=== PATIENT | male | born 1985 | race African-American/Black ===

== ENCOUNTER 2018-10-14 12:16 | Inpatient (IN) ==
[2018-10-14] MEDS ORDERED: KETOROLAC TROMETHAMINE 15 MG/ML VIAL IV STA (12:44)
[2018-10-14] MEDS ORDERED: ALBUT/IPRATROP 3MG/0.5MG NEB 3 ML VIAL NEB STA (12:44)
[2018-10-14] MEDS ORDERED: SODIUM CHLORIDE 0.9% 1000ML 1,000 ML IV ONE (12:48)
[2018-10-14 13:01] LABS: Hematocrit (blood only) 42.3 % (42-52); Hemoglobin 14.8 g/dL (14.0-18.0); Mean Corpuscular Volume 105.2 fL (80-100); Mean Platelet Volume 9.5 fL (7.4-10.4); Platelet Count 169 K/uL (130-400); RDW Standard Deviation 49.7 fL (36.4-46.3); Red Blood Count 4.02 M/uL (4.7-6.1); White Blood Count 6.92 K/uL (4.8-10.8)
--- NOTE | 2018-10-14 13:03 | XRay Report ---
XR chest 1V portable HISTORY: 32 years-old Male Chest Pain acute atypical chest pain COMPARISON: None available TECHNIQUE: Portable AP view of the chest FINDINGS: Cardiomediastinal and hilar silhouettes are within normal limits. Minimal subsegmental bibasilar opac ities are suggestive of atelectasis. No pneumothorax, pleural effusion or overt pulmonary edema. Bone s of the chest appear grossly intact. IMPRESSION: Minimal bibasilar opacities are suggestive of atelectasis. The above report was generated using voice recognition software. It may contain grammatical, syntax o r spelling errors. Electronically signed by: Steven Camp M.D. 10/14/2018 1:01 PM
[2018-10-14 13:16] LABS: Albumin Level 3.8 gm/dl (3.4-5.0); BUN Creatinine Ratio 11.7 (10-20); Calcium 8.8 mg/dl (8.5-10.1); Creatinine Clr Calc Pharmacy 116.7 ml/min; Est GFR (African American) 86.1; Est GFR (Non-African American) 74.3; Magnesium 2.4 mg/dl (1.8-2.4); Potassium 3.7 mmol/L (3.5-5.1)
[2018-10-14 13:20] LABS: Basophils # (auto) 0.01 K/uL (0-0.2); Basophils % (auto) 0.1 %; Eosinophils # (auto) 0.02 K/uL (0-0.5); Eosinophils % (auto) 0.3 %; Immature Granulocytes # (auto) 0.01 K/uL (0.00-0.02); Immature Granulocytes % (auto) 0.1 %; Lymphocytes # (auto) 3.46 K/uL (1.2-3.4); Monocytes # (auto) 0.45 K/uL (0.11-0.59); Monocytes % (auto) 6.5 %; Neutrophils # (auto) 2.97 K/uL (1.4-6.5)
[2018-10-14 13:34] LABS: Albumin Globulin Ratio 0.9 (0.9-2); Bilirubin Direct 0.1 mg/dl (0-0.2); Bilirubin,Total 0.5 mg/dl (0.2-1); Globulin 4.2 gm/dl (2.5-4.0); Troponin I 0.13 ng/ml (0-0.045)
[2018-10-14] MEDS ORDERED: IOVERSOL 100ml IV PRN (13:53)
--- NOTE | 2018-10-14 14:03 | CT Scan Report ---
CT angio chest PE protocol CT DOSE: 675.65 mGy.cm HISTORY: 32 years-old Male with PE. Acute mid chest pain with short of breath TECHNIQUE: Multiple CTA images of the chest were obtained after the intravenous administration of 94 ml Optiray 320. Coronal and sagittal MIPS were obtained from the axial data set and were submitted f or review. All measurements were obtained according to NASCET criteria. A dose lowering technique wa s utilized adhering to the principles of ALARA. COMPARISON: Chest radiograph of same day. FINDINGS: CTA: Heart is normal in size without pericardial effusion. The thoracic aorta is normal in course and shanice lupis without aneurysm or dissection. Patency about the imaged great vessels. Reflux of contrast into t he IVC. The pulmonary arterial tree is opacified to level of the lobar branches. The segmental and rivera bsegmental branches are not well opacified secondary to contrast bolus timing. No focal filling defec ts identified to suggest pulmonary thromboembolic disease. Respiratory motion limits evaluation of th e lung bases. . CT CHEST: No focal thyroid nodule. No adenopathy by CT size criteria. No pneumothorax or large pleural effusion. Trace amount of pleural fluid is seen at the lung bases. B ibasilar groundglass and consolidative opacities, most pronounced within the basal lower lobes and to lesser extent within the lingula and right middle lobe. Central airways appear patent. Bilateral gynecomastia. No acute process about the imaged upper abdomen. Bones appear to be intact. . IMPRESSION: 1. No acute aortic pathology or evidence of pulmonary thromboembolic disease. 2. Trace bilateral pleural effusions. 3. Bibasilar consolidative and groundglass opacities suggest atelectasis, pneumonia or aspiration pne umonitis. 4. No adenopathy. The above report was generated using voice recognition software. It may contain grammatical, syntax o r spelling errors. Electronically signed by: Steven Camp M.D. 10/14/2018 2:01 PM
[2018-10-14 14:16] LABS: Influenza A virus by PCR Neg for Influ A (Neg); Influenza B virus by PCR Neg for Influ B (Neg)
[2018-10-14 15:07] LABS: Appearance Urine Clear (Clear); Bacteria Urine Automated Negative (Negative); Bilirubin Urine Negative (Negative); Epithelial Cell Urine Auto >30 /lpf (0-5); Glucose Urine UA Negative (Negative); Ketones Urine Trace (Negative); Leukocyte Esterase Urine Negative (Negative); Nitrite Urine Negative (Negative); Protein Urine Trace (Negative); Specific Gravity Urine 1.033 (1.000-1.030); Urobilinogen Urine Negative (Negative); pH Urine 6.5 (4.5-7.5)
[2018-10-14 15:09] LABS: Color Urine Dark Yellow
--- NOTE | 2018-10-14 15:30 | Emergency Department Note ---
Entered by Gwyn Del Real acting as a scribe for Bahman Belcher MD History of Present Illness General Chief complaint: Respiratory Problems Stated complaint: DIFFICULTY BREATHING Time Seen by Provider: 10/14/18 12:40 Source: patient Mode of arrival: ambulatory Limitations: no limitations History of Present Illness Provider complaint: SOB/Neck pain/Chest Pain Onset (ago): day(s) Location: neck and chest (SOB) Pain Consistency: + intermittent Maximum Pain Intensity: 6 Quality: + other ("pressure" "throbbing" in neck) Associated symptoms: + chest pain and + shortness of breath Treatments prior to arrival: none The patient is a 32 year old male who presents to the Emergency Room with complaints of intermittent episodes of neck/chest pain and shortness of breath. The patient states that he first experienced symptoms yesterday morning when he woke up in the middle of the night. He notes that when he woke up from sleep he felt a pain in his left arm, chest, and neck. He assumed he had been sleeping on his side wrong and went back to sleep. When he woke up for work yesterday the symptoms had improved and he went to work as usual. Last night the symptoms returned while he was lying in bed. He states that whenever he would switch positions he would feel short of breath, with a pain in his neck. This pain would last for a few seconds and resolve as long as he laid still. He denies any chest pain or shortness of breath currently, but does complain of a "pressure" and "throbbing" sensation in his neck. The patient does have a history of anxiety and depression, but denies that his current symptoms feel like a panic attack. He does not smoke. Home Medications Home Medications Medication Instructions Recorded Confirmed Type citalopram [Celexa] 20 mg PO QAM 10/14/18 10/14/18 History methylphenidate HCl [Ritalin LA] 40 mg PO QAM 10/14/18 10/14/18 History Allergies Allergy/AdvReac Type Severity Reaction Status Date / Time No Known Allergies Allergy Unverified 10/14/18 12:44 Past Med/Surg History Medical History AVN (avascular necrosis of bone) Anxiety Depression Surgical History S/P hip replacement Bilateral Family History Father CVA (cerebral vascular accident) Social History Current Living Situation: Family Other Information That Helps Us Care for You: No Feels Safe at Home: Yes Safety Concerns: Feels Safe At This Time Smoking Status: Never smoker Hx Alcohol Use: No Hx Substance Use: No Beliefs That Will Affect Care: None Preferred Language: Bengali Communication Ability: Effective Review of Systems See HPI for pertinent positives & negatives. and A total of 10 systems reviewed and were otherwise negative Physical Exam Vital Signs Vital Signs - 24 hr 10/14/18 12:18 10/14/18 12:32 10/14/18 12:45 Temperature 36.6 C Temperature Source Oral Sepsis Recent Fever Within 48 Hours No Sepsis Action Taken by Nursing No Action Required Pulse Rate 91 H 90 Pulse Rate [Finger] Pulse Rhythm Respiratory Rate 20 20 Respiratory Effort / Characteristics Non-Labored Spontaneous Non-Labored Spontaneous Respiratory Depth Normal Normal Respiratory Pattern Regular Regular Blood Pressure 168/109 H 126/94 Blood Pressure [Left Arm] Blood Pressure [Right Arm] Blood Pressure Mean 128 104 Blood Pressure Mean [Left Arm] Blood Pressure Mean [Right Arm] Blood Pressure Position [Left Arm] Blood Pressure Position [Right Arm] Pulse Oximetry 98 98 Oxygen Delivery Method Room Air Room Air 10/14/18 13:00 10/14/18 13:15 10/14/18 13:30 Temperature Temperature Source Sepsis Recent Fever Within 48 Hours Sepsis Action Taken by Nursing Pulse Rate 79 79 83 Pulse Rate [Finger] Pulse Rhythm Regular Respiratory Rate 21 21 23 Respiratory Effort / Characteristics Respiratory Depth Respiratory Pattern Blood Pressure 160/110 H 154/110 H Blood Pressure [Left Arm] Blood Pressure [Right Arm] Blood Pressure Mean 126 124 Blood Pressure Mean [Left Arm] Blood Pressure Mean [Right Arm] Blood Pressure Position [Left Arm] Blood Pressure Position [Right Arm] Pulse Oximetry 97 97 100 Oxygen Delivery Method Room Air 10/14/18 14:37 10/14/18 15:00 10/14/18 15:32 Temperature Temperature Source Sepsis Recent Fever Within 48 Hours Sepsis Action Taken by Nursing Pulse Rate Pulse Rate [Finger] Pulse Rhythm Respiratory Rate 20 Respiratory Effort / Characteristics Non-Labored Spontaneous Respiratory Depth Normal Respiratory Pattern Regular Blood Pressure 144/77 H 156/79 H Blood Pressure [Left Arm] Blood Pressure [Right Arm] Blood Pressure Mean 99 104 Blood Pressure Mean [Left Arm] Blood Pressure Mean [Right Arm] Blood Pressure Position [Left Arm] Blood Pressure Position [Right Arm] Pulse Oximetry 97 Oxygen Delivery Method Room Air 10/14/18 16:00 10/14/18 16:19 10/14/18 16:41 Temperature 36.7 C Temperature Source Oral Sepsis Recent Fever Within 48 Hours Sepsis Action Taken by Nursing Pulse Rate 74 Pulse Rate [Finger] 68 Pulse Rhythm Respiratory Rate 18 16 Respiratory Effort / Characteristics Respiratory Depth Respiratory Pattern Blood Pressure 130/95 130/95 Blood Pressure [Left Arm] Blood Pressure [Right Arm] 140/94 Blood Pressure Mean 106 Blood Pressure Mean [Left Arm] Blood Pressure Mean [Right Arm] 109 Blood Pressure Position [Left Arm] Blood Pressure Position [Right Arm] Lying Pulse Oximetry 100 97 Oxygen Delivery Method Room Air Room Air 10/14/18 17:00 10/14/18 19:04 Temperature 36.7 C Temperature Source Oral Sepsis Recent Fever Within 48 Hours Sepsis Action Taken by Nursing Pulse Rate 79 Pulse Rate [Finger] 75 Pulse Rhythm Respiratory Rate 16 Respiratory Effort / Characteristics Respiratory Depth Respiratory Pattern Blood Pressure Blood Pressure [Left Arm] 143/79 H Blood Pressure [Right Arm] Blood Pressure Mean Blood Pressure Mean [Left Arm] 100 Blood Pressure Mean [Right Arm] Blood Pressure Position [Left Arm] Lying Blood Pressure Position [Right Arm] Pulse Oximetry 97 Oxygen Delivery Method Room Air Room Air GENERAL: Awake, alert, well-appearing, in no distress HENT: Normocephalic, atraumatic. Oropharynx with dry mucous membranes and otherwise unremarkable. EYES: Normal conjunctiva. Sclera non-icteric. NECK: Supple. No nuchal rigidity. FROM. No JVD. RESPIRATORY: Clear to auscultation. CARDIAC: Regular rate, normal rhythm. Extremities warm and well perfused. Pulses equal. ABDOMEN: Soft, non-distended. No tenderness to palpation. No rebound or guarding. No masses. RECTAL: Deferred. MUSCULOSKELETAL: Chest examination reveals no tenderness. The back is symmetrical on inspection without obvious abnormality. There is no CVA tenderness to palpation. No joint edema. LOWER EXTREMITIES: Calves are equal size bilaterally and non-tender. No edema. No discoloration. NEURO: Normal sensorium. No sensory or motor deficits noted. SKIN: No rash or jaundice noted. Course 1242: Past medical records reviewed. The patient was evaluated in room C9, and a complete history and physical examination were performed. 1435: I discussed the case with Dr. Lucy [facility] Cardiology. He agrees with treatment plan, suggests admitting to medicine. 1439: I reviewed the patient's case with Dr. Wayne DOW Hospitalist. He will evaluate the patient for further management. Consultations Consultation #1: 1435: I discussed the case with Dr. Lucy Spencer Cardiology. He agrees with treatment plan, suggests admitting to medicine. Consultation #2: 1439: I reviewed the patient's case with Dr. Wayne DOW Hospitalist. He will evaluate the patient for further management. Administered Medications Ibuprofen (Motrin) 600 mg PO Q8H MERLYN Stop: 11/13/18 21:59 Last Admin: 10/14/18 21:25 Dose: 600 mg Discontinued Medications Albuterol (Duoneb) 3 ml NEB NOW STA Stop: 10/14/18 12:45 Last Admin: 10/14/18 13:10 Dose: 3 ml Sodium Chloride (Nss 1000ml) 1,000 mls @ 999 mls/hr IV .Q1H1M ONE Stop: 10/14/18 13:48 Last Infusion: 10/14/18 14:15 Dose: 0 mls/hr Admin: 10/14/18 13:12 Dose: 999 mls/hr Ioversol (Optiray 320 100ml) 94 ml IV ONCE PRN PRN Reason: Interaction Checking Stop: 10/18/18 13:52 Last Admin: 10/14/18 13:53 Dose: 94 ml Ketorolac Tromethamine (Toradol) 15 mg IV NOW STA Stop: 10/14/18 12:45 Last Admin: 10/14/18 13:10 Dose: 15 mg Medical Decision Making Differential Diagnosis Differential diagnosis: Etiologies such as shingles, musculoskeletal pain, pericarditis, myocarditis, cardiac ischemia, pericardial tamponade, pneumonia, pneumothorax, pleural effusion, hemothorax, pleurisy, aortic pathology, pulmonary embolism, intra- abdominal process, as well as others were considered. Medical Records Attestation: I reviewed the patient's medical records. Home Medications Current Medication List: was personally reviewed by me Laboratory Data Attestation: I reviewed the patient's lab results. Result diagrams: 10/14/18 12:40 10/14/18 12:40 Lab Results 10/14/18 10/14/18 10/14/18 Range/Units 12:40 12:40 12:40 WBC 6.92 (4.8-10.8) K/uL RBC 4.02 L (4.7-6.1) M/uL Hgb 14.8 (14.0-18.0) g/dL Hct 42.3 (42-52) % MCV 105.2 H (80-100) fL MCH 36.8 H (25-34) pg MCHC 35.0 (32-36) g/dL RDW Std Deviation 49.7 H (36.4-46.3) fL RDW Coeff of [place]ba 13.0 (11.5-14.5) % Plt Count 169 (130-400) K/uL MPV 9.5 (7.4-10.4) fL Immature Gran % (Auto) 0.1 % Neut % (Auto) 43.0 % Lymph % (Auto) 50.0 % Carbon % (Auto) 6.5 % Eos % (Auto) 0.3 % Baso % (Auto) 0.1 % Immature Gran # (Auto) 0.01 (0.00-0.02) K/uL Neut # (Auto) 2.97 (1.4-6.5) K/uL Lymph # (Auto) 3.46 H (1.2-3.4) K/uL Carbon # (Auto) 0.45 (0.11-0.59) K/uL Eos # (Auto) 0.02 (0-0.5) K/uL Baso # (Auto) 0.01 (0-0.2) K/uL Platelet Estimate Normal (Normal) ESR (0-14) mm/hr D-Dimer 1360 H* (0-500) ug/L FEU Sodium 141 (136-145) mmol/L Potassium 3.7 (3.5-5.1) mmol/L Chloride 105 (98-107) mmol/L Carbon Dioxide 31 (21-32) mmol/L Anion Gap 4.0 (3-11) BUN 15 (7-18) mg/dl Creatinine 1.27 (0.6-1.4) mg/dl Est Cr Clr Drug Dosing 116.7 ml/min Est GFR ( Amer) 86.1 Est GFR (Non-Af Amer) 74.3 BUN/Creatinine Ratio 11.7 (10-20) Glucose 98 (70-99) mg/dl Calcium 8.8 (8.5-10.1) mg/dl Magnesium 2.4 (1.8-2.4) mg/dl Total Bilirubin 0.5 (0.2-1) mg/dl Direct Bilirubin 0.1 (0-0.2) mg/dl AST 14 L (15-37) U/L ALT 38 (12-78) U/L Alkaline Phosphatase 93 (45-117) U/L Troponin I 0.130 H* (0-0.045) ng/ml C-Reactive Protein (0-0.29) mg/dl NT-Pro-B Natriuret Pep (0-450) pg/ml Total Protein 8.0 (6.4-8.2) gm/dl Albumin 3.8 (3.4-5.0) gm/dl Globulin 4.2 H (2.5-4.0) gm/dl Albumin/Globulin Ratio 0.9 (0.9-2) Lipase 238 (73-393) U/L TSH (0.300-4.500) uIu/ml Urine Color Urine Appearance (Clear) Urine pH (4.5-7.5) Ur Specific [place] (1.000-1.030) Urine Protein (Negative) Urine Glucose (UA) (Negative) Urine Ketones (Negative) Urine Blood (Negative) Urine Nitrite (Negative) Urine Bilirubin (Negative) Urine Urobilinogen (Negative) Ur Leukocyte Esterase (Negative) Urine WBC (Auto) (0-5) /hpf Urine RBC (Auto) (0-4) /hpf U Hyaline Cast (Auto) (0-5) /lpf U Epithel Cells (Auto) (0-5) /lpf Urine Bacteria (Auto) (Negative) Ur Renal Epithelial Cell Urine Opiates Screen (Neg) Ur Methadone, Qual (Neg) Urine Barbiturates (Neg) Ur Phencyclidine (PCP) (Neg) U Amphetamin/Meth Scrn (Neg) MDMA (Ecstasy) Screen (Neg) U Benzodiazepines Scrn (Neg) Ur Cocaine Metabolite (Neg) U Marijuana (THC) Screen (Neg) Hepatitis C Antibody (Neg) HIV 1&2 Ab/P24 Ag 4thGn (Neg) Influenza Type A (PCR) (Neg) Influenza Type B (PCR) (Neg) 10/14/18 10/14/18 10/14/18 Range/Units 12:40 12:40 12:40 WBC (4.8-10.8) K/uL RBC (4.7-6.1) M/uL Hgb (14.0-18.0) g/dL Hct (42-52) % MCV (80-100) fL MCH (25-34) pg MCHC (32-36) g/dL RDW Std Deviation (36.4-46.3) fL RDW Coeff of [place]ba (11.5-14.5) % Plt Count (130-400) K/uL MPV (7.4-10.4) fL Immature Gran % (Auto) % Neut % (Auto) % Lymph % (Auto) % Carbon % (Auto) % Eos % (Auto) % Baso % (Auto) % Immature Gran # (Auto) (0.00-0.02) K/uL Neut # (Auto) (1.4-6.5) K/uL Lymph # (Auto) (1.2-3.4) K/uL Carbon # (Auto) (0.11-0.59) K/uL Eos # (Auto) (0-0.5) K/uL Baso # (Auto) (0-0.2) K/uL Platelet Estimate (Normal) ESR 26 H (0-14) mm/hr D-Dimer (0-500) ug/L FEU Sodium (136-145) mmol/L Potassium (3.5-5.1) mmol/L Chloride (98-107) mmol/L Carbon Dioxide (21-32) mmol/L Anion Gap (3-11) BUN (7-18) mg/dl Creatinine (0.6-1.4) mg/dl Est Cr Clr Drug Dosing ml/min Est GFR ( Amer) Est GFR (Non-Af Amer) BUN/Creatinine Ratio (10-20) Glucose (70-99) mg/dl Calcium (8.5-10.1) mg/dl Magnesium (1.8-2.4) mg/dl Total Bilirubin (0.2-1) mg/dl Direct Bilirubin (0-0.2) mg/dl AST (15-37) U/L ALT (12-78) U/L Alkaline Phosphatase (45-117) U/L Troponin I (0-0.045) ng/ml C-Reactive Protein 9.63 H (0-0.29) mg/dl NT-Pro-B Natriuret Pep 33 (0-450) pg/ml Total Protein (6.4-8.2) gm/dl Albumin (3.4-5.0) gm/dl Globulin (2.5-4.0) gm/dl Albumin/Globulin Ratio (0.9-2) Lipase (73-393) U/L TSH 1.490 (0.300-4.500) uIu/ml Urine Color Urine Appearance (Clear) Urine pH (4.5-7.5) Ur Specific [place] (1.000-1.030) Urine Protein (Negative) Urine Glucose (UA) (Negative) Urine Ketones (Negative) Urine Blood (Negative) Urine Nitrite (Negative) Urine Bilirubin (Negative) Urine Urobilinogen (Negative) Ur Leukocyte Esterase (Negative) Urine WBC (Auto) (0-5) /hpf Urine RBC (Auto) (0-4) /hpf U Hyaline Cast (Auto) (0-5) /lpf U Epithel Cells (Auto) (0-5) /lpf Urine Bacteria (Auto) (Negative) Ur Renal Epithelial Cell Urine Opiates Screen (Neg) Ur Methadone, Qual (Neg) Urine Barbiturates (Neg) Ur Phencyclidine (PCP) (Neg) U Amphetamin/Meth Scrn (Neg) MDMA (Ecstasy) Screen (Neg) U Benzodiazepines Scrn (Neg) Ur Cocaine Metabolite (Neg) U Marijuana (THC) Screen (Neg) Hepatitis C Antibody (Neg) HIV 1&2 Ab/P24 Ag 4thGn (Neg) Influenza Type A (PCR) (Neg) Influenza Type B (PCR) (Neg) 10/14/18 10/14/18 10/14/18 Range/Units 12:40 13:32 14:41 WBC (4.8-10.8) K/uL RBC (4.7-6.1) M/uL Hgb (14.0-18.0) g/dL Hct (42-52) % MCV (80-100) fL MCH (25-34) pg MCHC (32-36) g/dL RDW Std Deviation (36.4-46.3) fL RDW Coeff of [place]ba (11.5-14.5) % Plt Count (130-400) K/uL MPV (7.4-10.4) fL Immature Gran % (Auto) % Neut % (Auto) % Lymph % (Auto) % Carbon % (Auto) % Eos % (Auto) % Baso % (Auto) % Immature Gran # (Auto) (0.00-0.02) K/uL Neut # (Auto) (1.4-6.5) K/uL Lymph # (Auto) (1.2-3.4) K/uL Carbon # (Auto) (0.11-0.59) K/uL Eos # (Auto) (0-0.5) K/uL Baso # (Auto) (0-0.2) K/uL Platelet Estimate (Normal) ESR (0-14) mm/hr D-Dimer (0-500) ug/L FEU Sodium (136-145) mmol/L Potassium (3.5-5.1) mmol/L Chloride (98-107) mmol/L Carbon Dioxide (21-32) mmol/L Anion Gap (3-11) BUN (7-18) mg/dl Creatinine (0.6-1.4) mg/dl Est Cr Clr Drug Dosing ml/min Est GFR ( Amer) Est GFR (Non-Af Amer) BUN/Creatinine Ratio (10-20) Glucose (70-99) mg/dl Calcium (8.5-10.1) mg/dl Magnesium (1.8-2.4) mg/dl Total Bilirubin (0.2-1) mg/dl Direct Bilirubin (0-0.2) mg/dl AST (15-37) U/L ALT (12-78) U/L Alkaline Phosphatase (45-117) U/L Troponin I (0-0.045) ng/ml C-Reactive Protein (0-0.29) mg/dl NT-Pro-B Natriuret Pep (0-450) pg/ml Total Protein (6.4-8.2) gm/dl Albumin (3.4-5.0) gm/dl Globulin (2.5-4.0) gm/dl Albumin/Globulin Ratio (0.9-2) Lipase (73-393) U/L TSH (0.300-4.500) uIu/ml Urine Color Urine Appearance (Clear) Urine pH (4.5-7.5) Ur Specific [place] (1.000-1.030) Urine Protein (Negative) Urine Glucose (UA) (Negative) Urine Ketones (Negative) Urine Blood (Negative) Urine Nitrite (Negative) Urine Bilirubin (Negative) Urine Urobilinogen (Negative) Ur Leukocyte Esterase (Negative) Urine WBC (Auto) (0-5) /hpf Urine RBC (Auto) (0-4) /hpf U Hyaline Cast (Auto) (0-5) /lpf U Epithel Cells (Auto) (0-5) /lpf Urine Bacteria (Auto) (Negative) Ur Renal Epithelial Cell Urine Opiates Screen Neg (Neg) Ur Methadone, Qual Neg (Neg) Urine Barbiturates Neg (Neg) Ur Phencyclidine (PCP) Neg (Neg) U Amphetamin/Meth Scrn Neg (Neg) MDMA (Ecstasy) Screen Neg (Neg) U Benzodiazepines Scrn Neg (Neg) Ur Cocaine Metabolite Neg (Neg) U Marijuana (THC) Screen Neg (Neg) Hepatitis C Antibody Neg (Neg) HIV 1&2 Ab/P24 Ag 4thGn (Neg) Influenza Type A (PCR) Neg for Influ A (Neg) Influenza Type B (PCR) Neg for Influ B (Neg) 10/14/18 10/14/18 10/14/18 Range/Units 14:41 20:54 20:54 WBC (4.8-10.8) K/uL RBC (4.7-6.1) M/uL Hgb (14.0-18.0) g/dL Hct (42-52) % MCV (80-100) fL MCH (25-34) pg MCHC (32-36) g/dL RDW Std Deviation (36.4-46.3) fL RDW Coeff of [place]ba (11.5-14.5) % Plt Count (130-400) K/uL MPV (7.4-10.4) fL Immature Gran % (Auto) % Neut % (Auto) % Lymph % (Auto) % Carbon % (Auto) % Eos % (Auto) % Baso % (Auto) % Immature Gran # (Auto) (0.00-0.02) K/uL Neut # (Auto) (1.4-6.5) K/uL Lymph # (Auto) (1.2-3.4) K/uL Carbon # (Auto) (0.11-0.59) K/uL Eos # (Auto) (0-0.5) K/uL Baso # (Auto) (0-0.2) K/uL Platelet Estimate (Normal) ESR (0-14) mm/hr D-Dimer (0-500) ug/L FEU Sodium (136-145) mmol/L Potassium (3.5-5.1) mmol/L Chloride (98-107) mmol/L Carbon Dioxide (21-32) mmol/L Anion Gap (3-11) BUN (7-18) mg/dl Creatinine (0.6-1.4) mg/dl Est Cr Clr Drug Dosing ml/min Est GFR ( Amer) Est GFR (Non-Af Amer) BUN/Creatinine Ratio (10-20) Glucose (70-99) mg/dl Calcium (8.5-10.1) mg/dl Magnesium (1.8-2.4) mg/dl Total Bilirubin (0.2-1) mg/dl Direct Bilirubin (0-0.2) mg/dl AST (15-37) U/L ALT (12-78) U/L Alkaline Phosphatase (45-117) U/L Troponin I 3.850 H* (0-0.045) ng/ml C-Reactive Protein (0-0.29) mg/dl NT-Pro-B Natriuret Pep (0-450) pg/ml Total Protein (6.4-8.2) gm/dl Albumin (3.4-5.0) gm/dl Globulin (2.5-4.0) gm/dl Albumin/Globulin Ratio (0.9-2) Lipase (73-393) U/L TSH (0.300-4.500) uIu/ml Urine Color Dark Yellow Urine Appearance Clear (Clear) Urine pH 6.5 (4.5-7.5) Ur Specific [place] 1.033 H (1.000-1.030) Urine Protein Trace H (Negative) Urine Glucose (UA) Negative (Negative) Urine Ketones Trace H (Negative) Urine Blood Negative (Negative) Urine Nitrite Negative (Negative) Urine Bilirubin Negative (Negative) Urine Urobilinogen Negative (Negative) Ur Leukocyte Esterase Negative (Negative) Urine WBC (Auto) 1-5 (0-5) /hpf Urine RBC (Auto) 0-4 (0-4) /hpf U Hyaline Cast (Auto) 1-5 (0-5) /lpf U Epithel Cells (Auto) >30 H (0-5) /lpf Urine Bacteria (Auto) Negative (Negative) Ur Renal Epithelial Cell Not Reportable Urine Opiates Screen (Neg) Ur Methadone, Qual (Neg) Urine Barbiturates (Neg) Ur Phencyclidine (PCP) (Neg) U Amphetamin/Meth Scrn (Neg) MDMA (Ecstasy) Screen (Neg) U Benzodiazepines Scrn (Neg) Ur Cocaine Metabolite (Neg) U Marijuana (THC) Screen (Neg) Hepatitis C Antibody (Neg) HIV 1&2 Ab/P24 Ag 4thGn Neg (Neg) Influenza Type A (PCR) (Neg) Influenza Type B (PCR) (Neg) Imaging Data Attestation: I personally reviewed and interpreted this imaging study as follows : Radiologist's Impression: CT angio chest PE protocol CT DOSE: 675.65 mGy.cm HISTORY: 32 years-old Male with PE. Acute mid chest pain with short of breath TECHNIQUE: Multiple CTA images of the chest were obtained after the intravenous administration of 94 ml Optiray 320. Coronal and sagittal MIPS were obtained from the axial data set and were submitted for review. All measurements were obtained according to NASCET criteria. A dose lowering technique was utilized adhering to the principles of ALARA. COMPARISON: Chest radiograph of same day. FINDINGS: CTA: Heart is normal in size without pericardial effusion. The thoracic aorta is normal in course and caliber without aneurysm or dissection. Patency about the imaged great vessels. Reflux of contrast into the IVC. The pulmonary arterial tree is opacified to level of the lobar branches. The segmental and subsegmental branches are not well opacified secondary to contrast bolus timing. No focal filling defects identified to suggest pulmonary thromboembolic disease. Respiratory motion limits evaluation of the lung bases. . CT CHEST: No focal thyroid nodule. No adenopathy by CT size criteria. No pneumothorax or large pleural effusion. Trace amount of pleural fluid is seen at the lung bases. Bibasilar groundglass and consolidative opacities, most pronounced within the basal lower lobes and to lesser extent within the lingula and right middle lobe. Central airways appear patent. Bilateral gynecomastia. No acute process about the imaged upper abdomen. Bones appear to be intact. . IMPRESSION: 1. No acute aortic pathology or evidence of pulmonary thromboembolic disease. 2. Trace bilateral pleural effusions. 3. Bibasilar consolidative and groundglass opacities suggest atelectasis, pneumonia or aspiration pneumonitis. 4. No adenopathy. The above report was generated using voice recognition software. It may contain grammatical, syntax or spelling errors. Electronically signed by: Steven Camp M.D. 10/14/2018 2:01 PM XR chest 1V portable HISTORY: 32 years-old Male Chest Pain acute atypical chest pain COMPARISON: None available TECHNIQUE: Portable AP view of the chest FINDINGS: Cardiomediastinal and hilar silhouettes are within normal limits. Minimal subsegmental bibasilar opacities are suggestive of atelectasis. No pneumothorax , pleural effusion or overt pulmonary edema. Bones of the chest appear grossly intact. IMPRESSION: Minimal bibasilar opacities are suggestive of atelectasis. The above report was generated using voice recognition software. It may contain grammatical, syntax or spelling errors. Electronically signed by: Steven Camp M.D. 10/14/2018 1:01 PM ECG Data Attestation: I personally reviewed and interpreted this ECG as follows: Indication: chest pain and SOB/dyspnea Rate (beats per minute): 82 Rhythm: normal sinus Findings: + other (No reciprocal changes) and + ST elevation (Diffuse) Blood Pressure Blood Pressure Findings: Elevated blood pressure Blood Pressure Disposition: further management by hospitalist MARTITA Narrative The patient is a pleasant 32-year-old gentleman with a past medical history of avascular necrosis of bilateral hips (per patient 2/2 heavy etoh use when in college, ADD, anxiety and depression who presents to emergency department with shortness of breath and chest/neck pain that began yesterday per hpi. The patient reports that symptoms are worsened by lying supine. Denies etoh, smoking , drugs. On arrival patient is in no acute distress, afebrile stable vital signs. EKG demonstrates diffuse concave up ST elevations without reciprocal changes, which is most suggestive of pericarditis and less likely ACS in this 32 -year-old patient. Chest x-ray with nonspecific bibasilar opacities. WBC, H/H, platelets within normal limits. D-dimer 1300. Chemistry without acidosis. Troponin elevated at 0.130 in the setting of symptoms ongoing since yesterday. CT chest negative for PE. Redemonstrates nonspecific bibasilar groundglass opacities with trace bilateral pleural effusions. Limited bedside echo demonstrates grossly normal EF with likely trivial pericardial effusion. Otherwise the patient remained relatively well-appearing during his ED evaluation. However given the patient's symptoms with diffuse ST elevations and elevated troponin, will admit the patient for concern for possible mckenna- pericarditis. Case was discussed with Dr. Ayala, [place] cardiology on-call, who agrees with workup and plan thus far. Case was additionally discussed with Dr. Black, [facility] [place], who will evaluate the patient for admission. Impression & Plan Myopericarditis Discharge Plan Visit Data *Final* Discharge Date/Time: 10/14/18 16:19 Chief Complaint: Respiratory Problems Stated Complaint: DIFFICULTY BREATHING ED Provider: Bahman Belcher Discharge Problem: Myopericarditis Patient Disposition: Admitted As Inpatient Discharge Instructions Interventions: ED Discharge Assessment Last Done: 10/14/18 16:19 The scribe's documentation has been prepared under my direction and personally reviewed by me in its entirety. I confirm that the note above accurately reflects all work, treatment, procedures, and medical decision making performed by me.
[2018-10-14 15:39] LABS: Amphetamines+Metham, Urine Neg (Neg); Barbiturates, Urine Neg (Neg); Benzodiazepine, Urine Neg (Neg); Cocaine, Urine Neg (Neg); MDMA (Ecstacy), Urine Neg (Neg); Methadone, Urine Neg (Neg); Opiate, Urine Neg (Neg); Phencyclidine, Urine Neg (Neg)
[2018-10-14] MEDS ORDERED: ACETAMINOPHEN 325 MG TAB PO PRN (16:30)
--- NOTE | 2018-10-14 16:33 | History & Physical Report ---
Date of Service October 14, 2018 Assessment & Plan (1) Myopericarditis: EKG shows diffuse, concave-up, ST elevations that (with history) are consistent with pericarditis. Given mild troponin elevation, would consider it myopericarditis. No distinct viral illness recently, so currently considered idiopathic in nature. Discussed with Dr. Ayala and will plan as follows: - Ibuprofen 600mg TID - Echo - Trend troponins - Cardiology consult - Can consider colchicine to help reduce risk of recurrence, though patient says chest pain is already almost resolved, so will hold off for now. - Trend EKGs - CRP, ESR, HCV, HIV, TSH to look at severity and for possible causes. (2) Depression: No current symptoms. - Continue citalopram. (3) Avascular necrosis of bone: Had avascular necrosis of bilateral hips after college when he injured hips during working out and could not afford treatment for several months. Per patient, no systemic causes were looked for or expected. - No inpatient needs; do not think that event is playing a role or is related to current presentation (4) DVT prophylaxis: Low risk - SCDs History of Present Illness Primary Care Provider: NO PCP 32yo M w/ no significant PMH who presents with concern for pericarditis. Per patient, he was in his normal state of health when he went to bed. He woke up at 2am with chest, neck, and left shoulder/arm pain which he describes as a "throbbing" pain. He also notes that he was very short of breath with this pain , but otherwise, denies lightheadedness, dizziness, abdominal pain, or other symptoms. He notes the pain was improved when he leaned forward or sat upright and was worse when he lay flat. He reports he eventually got comfortable and fell asleep for a few hours. When he woke up, the pain was improved, but still present. He went to the urgent care and was sent to the ED. Allergies Allergy/AdvReac Type Severity Reaction Status Date / Time No Known Allergies Allergy Unverified 10/14/18 12:44 Home Medications Home Medications Medication Instructions Recorded Confirmed Type citalopram [Celexa] 20 mg PO QAM 10/14/18 10/14/18 History methylphenidate HCl [Ritalin LA] 40 mg PO QAM 02/05/19 02/05/19 History Past Med/Surg History Medical History AVN (avascular necrosis of bone) Anxiety Depression Surgical History S/P hip replacement Bilateral Family History Father CVA (cerebral vascular accident) Social History Current Living Situation: Family Other Information That Helps Us Care for You: No Feels Safe at Home: Yes Safety Concerns: Feels Safe At This Time Smoking Status: Never smoker Hx Alcohol Use: No Hx Substance Use: No Beliefs That Will Affect Care: None Preferred Language: Uzbek Communication Ability: Effective Review of Systems Constitutional: no fever, no chills and no sweats Eyes: no diplopia Ear, Nose, Mouth, Throat: no ear trauma, no nasal discharge and no dental pain Respiratory: no cough, no chest congestion and no dyspnea Cardiovascular: + chest pain, + chest pain at rest, + radiating jaw, neck or arm pain and + dyspnea; no dyspnea on exertion, no orthopnea, no palpitations, no lightheadedness, no syncope and no edema Gastrointestinal: no abdominal pain, no belching, no constipation, no diarrhea/ loose stools, no blood in stools and no melena Musculoskeletal: no back pain, no joint pain and no muscle weakness Integumentary: no rash, no skin ulcer and no erythema Neurologic: no generalized weakness, no loss of sensation, no numbness and no paresthesia Psychiatric: no depression and no anxiety Endocrine: no fatigue, no polydipsia and no polyphagia Physical Exam 2 Vital Signs (Past 24 Hours): Last Vital Signs Temp 36.6 C 10/14/18 12:18 Pulse 74 10/14/18 16:19 Resp 18 10/14/18 16:19 BP 130/95 10/14/18 16:19 Pulse Ox 100 10/14/18 16:19 Constitutional: WD/WN, vitals as above Eyes: EOM intact bilaterally; no conjunctival abnormality ENMT: external ear and nose normal, oropharynx normal Neck: trachea midline, no thyromegaly normal visual inspection Respiratory: normal respiratory effort, lungs clear to auscultation no respiratory distress Cardiovascular: RRR, no murmur, no edema Heart Sounds: no cardiac rub Gastrointestinal (Abdomen): Inspection/Auscultation: abdomen normal to inspection; abdomen not distended Musculoskeletal: no cyanosis or clubbing, extremities motor strength 5/5 Skin: no rashes, warm and dry Neurologic: moves all extremities and awake Psychiatric: Orientation: alert, oriented to person and cooperative
[2018-10-14 17:16] LABS: C Reactive Protein 9.63 mg/dl (0-0.29)
[2018-10-14] MEDS: IBUPROFEN 600 MG TAB PO SCH (21:25)
[2018-10-15] MEDS: IBUPROFEN 600 MG TAB PO SCH (05:35)
[2018-10-15] MEDS ORDERED: PERFLUTREN LIPID MICROSPHERE (DEFINITY) IV ONE (08:18)
[2018-10-15 08:46] LABS: Basophils # (auto) 0.01 K/uL (0-0.2); Basophils % (auto) 0.2 %; Eosinophils # (auto) 0.02 K/uL (0-0.5); Eosinophils % (auto) 0.3 %; Hematocrit (blood only) 39.8 % (42-52); Hemoglobin 13.9 g/dL (14.0-18.0); Immature Granulocytes # (auto) 0.01 K/uL (0.00-0.02); Immature Granulocytes % (auto) 0.2 %; Lymphocytes # (auto) 2.09 K/uL (1.2-3.4); Lymphocytes % (auto) 34.8 %; Mean Corpuscular Hgb Conc 34.9 g/dL (32-36); Mean Corpuscular Volume 103.6 fL (80-100); Mean Platelet Volume 9.1 fL (7.4-10.4); Monocytes # (auto) 0.26 K/uL (0.11-0.59); Monocytes % (auto) 4.3 %; Neutrophils # (auto) 3.61 K/uL (1.4-6.5); Neutrophils % (auto) 60.2 %; Platelet Count 153 K/uL (130-400); Red Blood Count 3.84 M/uL (4.7-6.1)
[2018-10-15] MEDS: METOPROLOL TARTRATE 25 MG TAB PO SCH ×2 (08:51→09:11)
[2018-10-15] MEDS ORDERED: CITALOPRAM 20 MG TAB PO SCH (09:00)
[2018-10-15] MEDS ORDERED: PANTOprazole 40 MG TAB PO SCH (09:00)
[2018-10-15 09:02] LABS: BUN Creatinine Ratio 12.5 (10-20); Calcium 8.6 mg/dl (8.5-10.1); Creatinine Clr Calc Pharmacy 134.5 ml/min; Est GFR (African American) 102.4; Est GFR (Non-African American) 88.4; Potassium 3.6 mmol/L (3.5-5.1)
[2018-10-15 09:17] LABS: Troponin I 10.5 ng/ml (0-0.045)
[2018-10-15 09:33] LABS: Folate (Folic Acid) 16.68 ng/ml (>5.38)
[2018-10-15] MEDS ORDERED: COLCHICINE 0.6 MG TAB PO SCH (11:15)
--- NOTE | 2018-10-15 12:35 | Cardiology Consultation ---
Date of Consultation October 15, 2018 Assessment & Plan (1) Myopericarditis: The patient's symptoms developed 36 hours prior to presentation. Suspect this is secondary to a subclinical virus. Agree with continuation of nonsteroidal agent for approximately 1 month. Would add colchicine to his regimen for total of 2-3 months. Can resume physical activity 1 symptoms have completely resolved. (2) Elevated troponin: Troponin has increased to 10.5. Would like to see his troponin on a decreasing trend prior to discharge. (3) Left ventricular hypertrophy: An unusual finding for a 32-year-old. We will need to watch his blood pressure closely. Currently on low-dose metoprolol. History of Present Illness Attending Physician: Cecille Martinez MD History of Present Illness Mr. Arriola is a 32-year-old male admitted yesterday with myopericarditis. This consultation was ordered to assistance cardiac management. The patient was in his usual state of excellent health until Saturday morning at 2 :00 a.m. when he awoke with a throbbing chest discomfort which radiated to his neck and left shoulder. He noticed a positional nature to his discomfort in that it was improved when leaning forward, but worse if he laid supine. Patient eventually fell asleep and awoke as usual to go to work that same day. As the day wore, his symptoms slowly improved. On the day of presentation, the patient continued to notice a vague sensation his chest and neck. Again, this was a throbbing type discomfort and he began to note some exertional dyspnea. For that reason, he presented to a local urgent care center. EKG there was abnormal and he was sent to our emergency room for further care. The patient received a dose of a nonsteroidal agent in his discomfort rapidly improved. However, his troponin I level was elevated and hospitalization was recommended. The patient has not experienced any recent illnesses. Currently, patient is resting comfortably in bed without complaints. His mother is at the bedside. We have had a long discussion regarding his diagnosis and treatment. Past medical and surgical history 1. Borderline hypertension 2. LVH 3. Anxiety/depression 4. History of hip avascular necrosis 5. Bilateral THR Social history Single, lives alone Just relocated here from [facility] 4 months ago. [employer] alumnus Family history Father is 66 has suffered a CVA Mother is 60 and healthy Siblings are healthy Review of systems A 10 point review of systems was undertaken and negative except for that described above. Allergies Allergy/AdvReac Type Severity Reaction Status Date / Time No Known Allergies Allergy Unverified 10/14/18 12:44 Home Medications Home Medications Medication Instructions Recorded Confirmed Type citalopram [Celexa] 20 mg PO QAM 10/14/18 10/14/18 History methylphenidate HCl [Ritalin LA] 40 mg PO QAM 10/14/18 10/14/18 History Patient History Medical History AVN (avascular necrosis of bone) Anxiety Depression Surgical History S/P hip replacement Bilateral Family History Father CVA (cerebral vascular accident) Social History Current Living Situation: Family Other Information That Helps Us Care for You: No Feels Safe at Home: Yes Safety Concerns: Feels Safe At This Time Smoking Status: Never smoker Hx Alcohol Use: No Hx Substance Use: No Beliefs That Will Affect Care: None Preferred Language: Maltese Communication Ability: Effective Physical Exam 2 Vital Signs (Past 24 Hours): Last Vital Signs Temp 36.8 C 10/15/18 11:41 Pulse 65 10/15/18 11:41 Resp 18 10/15/18 11:41 BP 147/84 H 10/15/18 11:41 Pulse Ox 95 10/15/18 11:41 Physical Exam: In general is a well-developed well-nourished black male in no acute distress. HEENT exam is negative. Neck is supple with full carotid upstrokes. There are no carotid bruits. Jugular venous pressure is flat at 90 . There is no thyromegaly. Cardiovascular exam reveals a regular rhythm with a normal S1 and S2. Heart sounds are distant. No obvious murmurs. No rubs. Lungs are clear without rales, rhonchi, wheezes. Abdomen is obese without bruits. Extremities reveal intact radial artery and posterior tibial pulses bilaterally. There is no peripheral edema. Results & Data Laboratory Results CBC notes hemoglobin of 13.9, hematocrit 39.8, white count 6.0, and platelet count of [id number]. Electrolytes in a sodium 130, potassium 3.6, chloride 106, bicarb 25, BUN 14, creatinine 1.1, glucose 130. Initial troponin was 0.13 with follow-up values of 3.85 and 10.5. TSH level normal at 1.49. Diagnostic Findings EKG notes sinus rhythm with diffuse ST elevation and P are depression in lead V2 consistent with acute pericarditis. Chest x-ray notes atelectasis. CT scan of the chest showed no pulmonary emboli. Atelectasis was noted. Echocardiogram notes hyperdynamic left ventricular systolic function and evidence of mild LVH.
[2018-10-15] MEDS ORDERED: IBUPROFEN 800 MG TAB PO SCH (14:00)
--- NOTE | 2018-10-15 16:14 | Consultation Report ---
DATE OF CONSULTATION: 10/15/2018 CONSULTATION REQUESTED BY: Cecille Martinez MD HISTORY OF PRESENT ILLNESS: A 32-year-old male who has past medical history significant for possibility of sickle cell trait which he was told about 10 years ago, but he told me that he never had any problems and he was in his usual state of health until the day of the admission when he woke up around 2 a.m. with chest tightness and pain radiating to his left arm, left shoulder and also in his neck and his throat and some burning sensation. He claimed that he was also having some throbbing pain over there. He was not able to position himself to make himself better, and then during the day, he felt a little better, it improves and again it started the same way. He was also having some shortness of breath with the pain and minimal cough with no sputum production. He was not able to take deep breathing. Currently, he feels that his pain and throbbing sensation seems to have stabilized. The patient received a dose of nonsteroidal agent and his discomfort rapidly improved. His troponin also started going up. He had echocardiogram done which did not reveal any pericardial effusion. His EF was within normal limits, but left ventricular hypertrophy. The patient was also evaluated by cardiology. The reason they had consulted us because he had an abnormal CT scan of the chest consistent with some ground-glass opacities on the bases and movement artifact and some atelectasis. REVIEW OF SYSTEMS: As mentioned above. He denies having any headache, dizziness or syncopal episode. Also, denies having any swollen glands. No chest pain at this time after he was started on medication. Also, he denies having any radiation of the pain in his left arm or left shoulder at this time. No abdominal pain, no nausea, no vomiting. No blood in the stool, urine or painful micturition. Denies having any swollen extremities, no skin rash, no lesions, no swollen joints. PAST MEDICAL HISTORY: Significant for borderline hypertension, anxiety/depression. Also, history of hip avascular necrosis and bilateral THR. FAMILY HISTORY: Father is 66, has suffered a CVA. Mother is 60 and healthy. Siblings are healthy. SOCIAL HISTORY: He denies having any smoking or alcohol-related history. Denies any drug abuse. He has relocated from [place], [place] about 4 months ago. OBJECTIVE: GENERAL: Young male, resting comfortably in the bed, not in any acute distress. VITAL SIGNS: His blood pressure is 147/84, pulse is 65, respiratory rate is 18 and his temperature is 36.8, oxygen saturation is 95% on room air. His input was 1660, output was not documented. HEENT: Pupils are reactive to light. There is no cervical or supraclavicular adenopathy. No jugular venous distention. Nasal passages are clear. Sinuses are nontender. CHEST: Bilateral air entry with clear lungs. No wheezing, no crackles, no rhonchi heard. HEART: S1, S2 heard, regular rate and rhythm. No murmur could be appreciated. No rubs, no gallops. ABDOMEN: Soft, nontender, no hepatosplenomegaly. Bowel sounds are positive. EXTREMITIES: No clubbing, no edema, nontender calf muscles. NEUROLOGIC: Limited study which is grossly nonfocal. LABORATORY DATA: His WBC is 6.00, H and H 13.9/39.8, MCV 103.6, platelets are 153. Differential count is normal. Sodium is 138, potassium 3.6, chloride 106, CO2 of 25, anion gap was 7, BUN 14, creatinine 1.10, glucose 130. His troponin is 10.5, calcium is 8.6. His UA was positive for trace protein and trace ketones. He had a CT of the chest, did not reveal any aortic pathology or evidence of pulmonary thromboembolic disease. Trace bilateral pleural effusion, bibasilar consolidative and ground-glass opacities, possibility of atelectasis, pneumonia, aspiration pneumonitis, all motion artifacts at the lung bases, no adenopathy. IMPRESSION AND PLAN: A 32-year-old male admitted with chest pain, throbbing in nature, radiated to left shoulder, left arm and has an abnormal CT of the chest. 1. Bilateral ground-glass opacities/bibasilar atelectasis. The patient is admitted with pericarditis, possibility of viral in nature and it is possible that he might have viral infection in his lungs too, but he is very likely that he is not able to take deep breathing because of his chest pain and that is why also he could have bibasilar atelectasis. Currently, he is on antibiotics. Cultures have been pending. He is also being treated for his pericarditis by the cte teacher and now seems to be more comfortable, he is oxygenating well. We are also going to request for the blood smear to find out about his sickle cell condition because he has been telling us that he was told that he has sickle cell trait and if some of his lung findings are related to his sickle cell disease. 2. Myopericarditis. The patient was evaluated by cardiology and there is possibility of virus related condition. He was started on nonsteroidal anti-inflammatory agent as well as colchicine and he will be continued and follow with the cardiology. 3. Elevated troponin. We are going to follow the trend and see which direction it has been going on. Also, he had an echocardiogram done which revealed some mild left ventricular hypertrophy and he has got history of hypertension and he will be followed closely by the cardiology. We are going to continue with all this management as prescribed. I have discussed the case with Dr. Martinez. I have spent greater than 55 minutes of the clinical time. Thank you very much for allowing me to participate in the care of your patient. If you have got any further questions, please do not hesitate to contact me and I will follow this case with you.
--- NOTE | 2018-10-15 17:05 | Discharge Summary ---
Date of Service October 15, 2018 Admission HPI Per Admitting Provider 32yo M w/ no significant PMH who presents with concern for pericarditis. Per patient, he was in his normal state of health when he went to bed. He woke up at 2am with chest, neck, and left shoulder/arm pain which he describes as a "throbbing" pain. He also notes that he was very short of breath with this pain , but otherwise, denies lightheadedness, dizziness, abdominal pain, or other symptoms. He notes the pain was improved when he leaned forward or sat upright and was worse when he lay flat. He reports he eventually got comfortable and fell asleep for a few hours. When he woke up, the pain was improved, but still present. He went to the urgent care and was sent to the ED. Principal Diagnosis Myopericarditis Discharge Exam Constitutional WD/WN, vitals as above Eyes PERRL, conjunctivae normal, anicteric sclerae ENMT external ear and nose normal, oropharynx normal Neck trachea midline, no thyromegaly Respiratory normal respiratory effort, lungs clear to auscultation Cardiovascular RRR, no murmur, no edema Vessels: dorsalis pedis pulses present Gastrointestinal (Abdomen) normal bowel sounds, soft, nontender, no hepatosplenomegaly Musculoskeletal Extremities: extremities normal to inspection; no cyanosis and no clubbing Skin no rashes, warm and dry Neurologic moves all extremities and awake; no focal motor deficits Psychiatric A+Ox3, euthymic affect Discharge Data Allergies Allergy/AdvReac Type Severity Reaction Status Date / Time No Known Allergies Allergy Unverified 10/14/18 12:44 Consultations Cardiology Pulmonology Procedures Performed Echocardiogram LVEF greater than 70%, no pericardial effusion, mild concentric LVH Ordered Studies 10/14/18 13:21 CT angio chest PE protocol Stat : CT angio chest PE protocol CT DOSE: 675.65 mGy.cm HISTORY: 32 years-old Male with PE. Acute mid chest pain with short of breath TECHNIQUE: Multiple CTA images of the chest were obtained after the intravenous administration of 94 ml Optiray 320. Coronal and sagittal MIPS were obtained from the axial data set and were submitted for review. All measurements were obtained according to NASCET criteria. A dose lowering technique was utilized adhering to the principles of ALARA. COMPARISON: Chest radiograph of same day. FINDINGS: CTA: Heart is normal in size without pericardial effusion. The thoracic aorta is normal in course and caliber without aneurysm or dissection. Patency about the imaged great vessels. Reflux of contrast into the IVC. The pulmonary arterial tree is opacified to level of the lobar branches. The segmental and subsegmental branches are not well opacified secondary to contrast bolus timing. No focal filling defects identified to suggest pulmonary thromboembolic disease. Respiratory motion limits evaluation of the lung bases. . CT CHEST: No focal thyroid nodule. No adenopathy by CT size criteria. No pneumothorax or large pleural effusion. Trace amount of pleural fluid is seen at the lung bases. Bibasilar groundglass and consolidative opacities, most pronounced within the basal lower lobes and to lesser extent within the lingula and right middle lobe. Central airways appear patent. Bilateral gynecomastia. No acute process about the imaged upper abdomen. Bones appear to be intact. . IMPRESSION: 1. No acute aortic pathology or evidence of pulmonary thromboembolic disease. 2. Trace bilateral pleural effusions. 3. Bibasilar consolidative and groundglass opacities suggest atelectasis, pneumonia or aspiration pneumonitis. 4. No adenopathy. Chest x-ray: XR chest 1V portable HISTORY: 32 years-old Male Chest Pain acute atypical chest pain COMPARISON: None available TECHNIQUE: Portable AP view of the chest FINDINGS: Cardiomediastinal and hilar silhouettes are within normal limits. Minimal subsegmental bibasilar opacities are suggestive of atelectasis. No pneumothorax , pleural effusion or overt pulmonary edema. Bones of the chest appear grossly intact. IMPRESSION: Minimal bibasilar opacities are suggestive of atelectasis. Hospital Course (1) Myopericarditis: EKGs with diffuse, ST elevations that (with history) are consistent with pericarditis. Given chest pain, troponin elevation to a peak of 10, would consider it myopericarditis. No distinct viral illness recently, so currently considered idiopathic in nature. Discussed with Dr. Ayala of cardiology. Echocardiogram without pericardial effusion and with normal function Serial troponin peaked at 10 and came down to 7 before discharge No further intervention needed and thought to be secondary to myopericarditis -Plan to continue ibuprofen 600mg TID times 1 week and then as needed after that -Start colchicine 0.6 mg p.o. twice daily times 3 months - Cardiology consult appreciated-patient will follow-up with cardiology within 2 weeks -ProBNP normal, CRP elevated at 9.6, ESR mildly elevated at 26, HCV negative, HIV negative, TSH normal at 1.49 Flu swab negative MCV elevated and he has been told this in the past, B12 and folate normal. -Recommend follow-up with primary care physician CT of the chest negative for PE but shows some bibasilar consolidative and groundglass opacities which are likely consistent with atelectasis secondary to splinting from pleuritic chest pain-encouraged anti-inflammatories and deep breathing -He should not do any strenuous exertion until cleared by cardiology (2) Depression: No current symptoms. - Continue citalopram. 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 Per patient, no systemic causes were looked for or expected. - No inpatient needs; do not think that event is playing a role or is related to current presentation (7) DVT prophylaxis: Low risk - SCDs were provided Disposition-he stable for discharge to home with close follow-up with cardiology and we arranged for him to get established with a new PCP Total Time Total Time Spent Total Time Spent (In Minutes): Greater than 30 minutes Total Time Includes: Examination of the Patient, Discharge Planning, Medication Reconciliation and Communication With Other Providers (Cardiology, pulmonology) Discharge Plan Discharge Items Patient Disposition: Home - Self-Care Reason For Visit: PERICARDITIS Discharge Diagnosis: Myopericarditis Condition: Good Discharge Goals: Decrease discomfort, Diagnostic testing, Improve disease control, Learn about illness and Therapeutic intervention Activity: As commented below Activity Comment: No strenuous exertion until symptoms resolve and cleared by Cardiology Lifting: No more than 10 pounds Bathing: No limitations Exercise/Sports: Wait until after follow-up appointment Driving/Machine Use: No limitations Non-emergency contact: Primary Care Provider and [facility] Call non-emergency contact if: you have any medication questions, your symptoms worsen, your pain is not controlled, your pain is worsening, your pain is unusual for you and your pain is concerning for you Follow-up/Referrals: Tonio Browning PA-C [Physician Paediatric Physiotherapist] - 10/30/18 1:45 pm (Please, follow up at [facility] Cardiology Office with Tonio Browning PA-C on October 30 at 2:00 pm (arrive 1:45 pm). *This office is located in [address] of [facility] [place] [address]. This is the big building near this [facility]. If you need to change this appointment, call the office at [phone].) Ashly Nettles CRNP [Nurse Practitioner] - 10/20/18 8:45 am (Please, follow up at [facility] Family Medicine Office with Ashly BUCKNER on SaturdayOctober 20 at 8:45 am. *This office is located at [address] in [place]. If you need to change/cancel this appointment, call the office at .) Diet: Heart Healthy Addtl Provider Instructions: You were admitted with chest pain and found to have myopericarditis. This is inflammation of the heart and its outer layer. This will be treated with ibuprofen three times a day x 1 week, then as needed daily after that, as well as colchicine 0.6mg by mouth twice daily x 3 months. If you develop worsening chest pain, shortness of breath, lightheadedness, or pass out, please call your doctor or come to the ER right away. Sometimes you can get inflammation in the stomach from the ibuprofen--> if this happens, you can take an antacid from the drug store like Prilosec, Nexium, Zantac, or Pepcid. Please follow up with the [facility] within 2 weeks as scheduled for you. Your blood pressure was quite elevated here and you were given medication to bring it down. Your heart muscle is starting to enlarge on the ultrasound we did of your heart and this may be related to untreated high blood pressure. Please monitor your blood pressures at home and keep a log to bring to your doctor for review. For now, you will not be continued on the blood pressure medication, but this may need to be started in the future if your blood pressures remain elevated. Please follow up with the PCP as scheduled for you. Prescriptions: New ibuprofen 800 mg Tablet 800 mg PO Q8 Qty: 42 RF: 0 colchicine [Colcrys] 0.6 mg Tablet 0.6 mg PO BID Qty: 60 RF: 2 Continue citalopram [Celexa] 20 mg Tablet 20 mg PO QAM RF: 0 methylphenidate HCl [Ritalin LA] 40 mg Capsule,Er Biphasic 50-50 40 mg PO QAM RF: 0 Stand-Alone Forms: [facility] Discharge Orders: Discharge Order (Routine); Ordered 10/15/18 Ordered By: Cecille Martinez Admission Data Admit Date/Time: 10/14/18 15:32 Attending Provider: Cecille Martinez Admit Provider: Partha Black Primary Care Provider: Brown Black Other Providers: Ronnie Ayala ; Kanika Whatley Service: Telemetry Other Interventions: Discharge Summary Assessment (RN) Last Done: 10/15/18 17:38 Pending Studies at Discharge: Yes Studies:: Rheumatoid factor, ANGELES DC Date/Time DO NOT enter until pt leaves facility: 10/15/18 18:52
[2018-10-17 11:13] LABS: Anti Nuclear Antibody Screen POSITIVE (NEGATIVE); Rheumatoid Factor < 14 IU/ML (<14)
[2018-10-20 14:09] LABS: ANA Pattern HOMOGENEOUS
== END 2018-10-15 18:52 | disposition home or self-care (01) | DRG 315 ==
LOC: ED 12:16 → 2N 15:32 → SUATTDRO 15:32 → 2N 16:19
DX: R78.89 Finding of other specified substances, not normally found in blood; F32.9 Major depressive disorder, single episode, unspecified; R03.0 Elevated blood-pressure reading, without diagnosis of hypertension; J98.11 Atelectasis; I51.7 Cardiomegaly; I30.0 Acute nonspecific idiopathic pericarditis; Z82.3 Family history of stroke; Z87.39 Personal history of other diseases of the musculoskeletal system and connective tissue; Z79.899 Other long term (current) drug therapy; F90.9 Attention-deficit hyperactivity disorder, unspecified type; F41.9 Anxiety disorder, unspecified; Z96.643 Presence of artificial hip joint, bilateral